=== PATIENT | female | born 1955 | race American Indian/Alaskan Native ===

== ENCOUNTER 2016-09-01 22:34 | Emergency (ER) | payer MEDICARE ==
[2016-09-01 23:18] LABS: Basophils % (Auto) 0.8 % (0.0-1.8); Eosinophils % (Auto) 3.4 % (0.0-4.3); Hematocrit 38.5 % (30.3-42.9); Hemoglobin 12.7 gm/dl (10.1-14.3); Mean Corpuscular HGB Conc 33 % (30-34); Mean Corpuscular Hemoglobin 30 pg (28-32); Mean Corpuscular Volume 92 fl (79-97); Platelet Count 392 K/mm3 (140-440); Red Blood Count 4.19 M/mm3 (3.65-5.03); Red Cell Distribution Width 13.8 % (13.2-15.2); White Blood Count 8.8 K/mm3 (4.5-11.0)
[2016-09-01 23:39] LABS: Anion Gap 19 mmol/L; Blood Urea Nitrogen 22 mg/dL (7-17); Calcium 9.4 mg/dL (8.4-10.2); Carbon Dioxide 27 mmol/L (22-30); Chloride 94.8 mmol/L (98-107); Glucose 104 mg/dL (65-100); Potassium 3.8 mmol/L (3.6-5.0); Sodium 137 mmol/L (137-145)
--- NOTE | 2016-09-02 07:45 | Emergency Department Report ---
HPI - General Chief Complaint: Chest Pain Time Seen by Provider: 09/02/16 07:13 - HPI HPI: This is a 60-year-old Afro-[place] female presents the emergency department with complaint of elevated and uncontrolled blood pressure. Patient says she has been compliant with her medications include atenolol, Zestril, HCTZ and Norvasc, but her blood pressure continued to rise yesterday afternoon. She began having some generalized chest tightness and was driven in by her he seen. She says that the symptoms have resolved as being in the emergency department. She denies any headache, vision change, back pain, shortness of breath, nausea, vomiting. She has a history of mild COPD and is not on oxygen, insulin-dependent diabetes, hypertension, but she denies any history of PA, CVA , PE/DVT. Her primary care doctor is Dr. nadege nunez. No recent travel or sick contacts at home. She did not take any medications or treatment for symptoms prior to presentation. ED Past Medical Hx - Past Medical History Hx Hypertension: Yes Hx Diabetes: Yes Hx Arthritis: Yes (NECK AND BACK) Hx COPD: Yes Additional medical history: high cholesterol, hypothyroid - Surgical History Additional Surgical History: knee replacement, , hysterectomy - Social History Smoking Status: Former Smoker Substance Use Type: None - Medications Home Medications: Home Medications Medication Instructions Recorded Confirmed Last Taken Type Diazepam Tab [Valium] 2 mg PO BID PRN #8 tablet 06/10/14 Unknown Rx Naproxen [Naprosyn TAB] 500 mg PO BID #30 tablet 10/11/15 Unknown Rx Sulfamethoxazole/Trimethoprim 1 each PO BID #20 tablet 10/11/15 Unknown Rx [Bactrim DS TAB] traMADol [Ultram] 50 mg PO Q6HR PRN #20 tablet 10/11/15 Unknown Rx ED Review of Systems ROS: Stated complaint: CHEST PAIN, ELEVATED BLOOD PRESSURE Other details as noted in HPI Comment: All other systems reviewed and negative Constitutional: denies: chills, fever Eyes: denies: eye pain, eye discharge, vision change ENT: denies: ear pain, throat pain Respiratory: denies: cough, shortness of breath, wheezing Cardiovascular: chest pain (tightness - now resolved). denies: palpitations Gastrointestinal: denies: abdominal pain, nausea, diarrhea Genitourinary: denies: urgency, dysuria, discharge Musculoskeletal: denies: back pain, joint swelling, arthralgia Skin: denies: rash, lesions Neurological: denies: headache, weakness, paresthesias Physical Exam - Physical Exam Vital Signs: Vital Signs 09/01/16 09/02/16 22:46 06:13 Temperature 97.9 F 98.9 F Pulse Rate 68 66 Respiratory 20 16 Rate Blood Pressure 192/96 165/81 O2 Sat by Pulse 98 99 Oximetry Physical Exam: GENERAL: The patient is well-developed well-nourished. HEENT: Normocephalic. Atraumatic. Extraocular motions are intact. Patient has moist mucous membranes. Pupils equal reactive to light bilaterally. NECK: Supple. Trachea is midline. CHEST/LUNGS: Clear to auscultation. There is no respiratory distress noted. HEART/CARDIOVASCULAR: Regular. There is no tachycardia. There is no gallop rub or murmur. ABDOMEN: Abdomen is soft, nontender. Patient has normal bowel sounds. There is no abdominal distention. Obese habitus. SKIN: There is no rash. There is no edema. There is no diaphoresis. NEURO: The patient is awake, alert, and oriented. The patient is cooperative. The patient has no focal neurologic deficits. The patient has normal speech. MUSCULOSKELETAL: There is no tenderness or deformity. There is no limitation range of motion. There is no evidence of acute injury. ED Course Vital Signs 09/01/16 09/02/16 22:46 06:13 Temperature 97.9 F 98.9 F Pulse Rate 68 66 Respiratory 20 16 Rate Blood Pressure 192/96 165/81 O2 Sat by Pulse 98 99 Oximetry ED Medical Decision Making - Lab Data Result diagrams: 09/01/16 23:05 09/01/16 23:05 - EKG Data -: EKG Interpreted by Me EKG shows normal: sinus rhythm, axis, intervals, QRS complexes, ST-T waves Rate: normal - EKG Data When compared to previous EKG there are: no significant change Interpretation: normal EKG, unchanged when compared t (03/30/11) - Radiology Data Radiology results: image reviewed interpreted by me: Chest x-ray did not show any acute process. Heart is normal shape and size. No effusions. No pneumothorax. No signs of pneumonia seen. - Medical Decision Making 60-year-old female presents to the emergency department with elevated and uncontrolled blood pressure as well as some chest tightness that occurred prior to presentation but resolved upon presentation. Patient has diagnosed history of hypertension and says she has been compliant with her medications. Blood pressure was a systolic of 200 earlier but has come down to a more reasonable level without any intervention. Patient had EKG that does not show any signs of ST elevation PA, ischemia or dysrhythmia. Her labs are unremarkable including negative troponins 3. She no longer has any chest pain. She does not have any shortness of breath. She is very low suspicion on the well's score criteria. The patient says she is currently back at baseline. She appears safe for discharge home at this time. She has good follow-up with Dr. Jefferson. She's been encouraged to return to the emergency department with any return of her chest pain, inability to control her blood pressure or any acute distress. - Differential Diagnosis PA, costochondritis, GERD, hypertensive urgency Critical Care Time: No Critical care attestation.: If time is entered above; I have spent that time in minutes in the direct care of this critically ill patient, excluding procedure time. ED Disposition Clinical Impression: Chest tightness Hypertension Qualifiers: Hypertension type: essential hypertension Qualified Code(s): I10 - Essential ( primary) hypertension Disposition: DISCHARGED TO HOME OR SELFCARE Is pt being admited?: No Does the pt Need Aspirin: No Condition: Good Instructions: Hypertension (ED), Chest Pain (ED) Additional Instructions: Please follow-up with your primary care doctor in the next few days. I have also given you a referral for a local date night caregiver in case she would like to follow-up regarding her recent chest tightness for an outpatient stress test and further evaluation. However he should return to the emergency department with any return of your chest pain, worsening of your symptoms or any acute distress. Please try and stay away from foods that are high in salt and caffeinated products to assist with your blood pressure. Referrals: FAY JEFFERSON MD [Primary Care Provider] - 3-5 Days Time of Disposition: 08:04
--- NOTE | 2016-09-02 07:58 | XRay Report ---
AP CHEST: HISTORY: chest pain AP view of the chest demonstrates a normal mediastinal and cardiac contour with clear lungs and normal bony and soft tissue structures. IMPRESSION: Unremarkable AP chest.
[2016-09-02 08:02] VITALS: BP 145/72
== END 2016-09-02 08:20 | disposition home or self-care (01) ==
LOC: ED 22:34
DX: R07.89 Other chest pain (principal); I10 Essential (primary) hypertension; E11.9 Type 2 diabetes mellitus without complications; M19.90 Unspecified osteoarthritis, unspecified site; J44.9 Chronic obstructive pulmonary disease, unspecified; E78.00 Pure hypercholesterolemia, unspecified; E03.9 Hypothyroidism, unspecified; Z90.710 Acquired absence of both cervix and uterus; Z87.891 Personal history of nicotine dependence
CPT/HCPCS: 36415; 71010; 80048; 84484; 85025; 93005; 93010; 99285

== ENCOUNTER 2017-09-28 07:31 | Outpatient (CLI) | payer MEDICARE ==
--- NOTE | 2017-09-29 08:14 | Mammography Report ---
BILATERAL MAMMOGRAM: FINDINGS: The breasts are almost entirely fat (<25% glandular). No mass, distortion, suspicious calcification, or skin change is seen. No significant change when compared to prior examination June 2016. CAD was utilized. IMPRESSION: Negative mammogram. There is no mammographic evidence of malignancy. RECOMMENDATION: Follow-up per ACS guidelines. BI-RADS CATEGORY: 1 = Negative ACR BI-RADS MAMMOGRAPHIC CODES: 0 = Needs additional imaging evaluation; 1 = Negative; 2 = Benign; 3 = Probably benign; 4 = Suspicious; 5 = Malignant; 6 = Known biopsy-proven malignancy COMMENT: 1. Dense breast tissue, i.e., adenosis, fibrocystic changes, etc., may obscure an underlying neoplasm. 2. Approximately 10% of cancers are not detected with mammography. 3. A negative mammography report should not delay biopsy if a clinically suspicious mass is present. COMMENT: Patient follow-up letters are generated in [employer].
== END 2017-09-28 07:32 | disposition home or self-care (01) ==
LOC: MAMMO 07:31
PROVIDERS: ATTEND Internal Medicine
DX: Z12.31 Encounter for screening mammogram for malignant neoplasm of breast (principal)
CPT/HCPCS: 77067

== ENCOUNTER 2017-12-29 12:18 | Emergency (ER) | payer MEDICARE ==
[2017-12-29 16:37] VITALS: BP 132/77
--- NOTE | 2017-12-29 16:50 | Emergency Department Report ---
ED Extremity Problem HPI - General Chief complaint: Extremity Injury, Lower Stated complaint: KNEES/FEET INJURY Time Seen by Provider: 12/29/17 16:28 Source: patient, family Mode of arrival: Ambulatory Limitations: No Limitations - History of Present Illness Initial comments: Patient complained of bilateral knee pain which has been ongoing since yesterday. Patient denies any fall or injury to the knee. Patient had previous bilateral knee replacement. He also complained of mild feet swelling. MD Complaint: extremity pain, extremity swelling, joint paint -: Sudden, days(s) (1) Location: lower extremity, bilateral lower extremity, knee -: Yes myalgia, Yes arthralgia Radiation: none Severity scale (0 -10): 3 Quality: aching, dull Consistency: intermittent Improves with: immobilization, elevation Worsens with: weight bearing, exertion Associated Symptoms: arthralgias - Related Data Previous Rx's Medication Instructions Recorded Last Taken Type Diazepam Tab [Valium] 2 mg PO BID PRN #8 tablet 06/10/14 Unknown Rx Naproxen [Naprosyn TAB] 500 mg PO BID #30 tablet 10/11/15 Unknown Rx Sulfamethoxazole/Trimethoprim 1 each PO BID #20 tablet 10/11/15 Unknown Rx [Bactrim DS TAB] traMADol [Ultram] 50 mg PO Q6HR PRN #20 tablet 10/11/15 Unknown Rx Ketorolac [Toradol] 10 mg PO Q6H PRN #12 tablet 12/29/17 Unknown Rx Allergies Allergy/AdvReac Type Severity Reaction Status Date / Time No Known Allergies Allergy Verified 01/08/16 18:11 ED Review of Systems ROS: Stated complaint: KNEES/FEET INJURY Other details as noted in HPI Comment: All other systems reviewed and negative Constitutional: denies: chills, fever Eyes: denies: vision change ENT: denies: ear pain, hearing loss Respiratory: denies: orthopnea, shortness of breath, SOB with exertion Cardiovascular: denies: chest pain, palpitations Endocrine: no symptoms reported Gastrointestinal: denies: abdominal pain, nausea, vomiting, diarrhea Genitourinary: denies: urgency, dysuria, frequency Musculoskeletal: denies: back pain, joint swelling Skin: denies: rash, change in color Neurological: denies: headache, weakness, numbness Psychiatric: denies: anxiety, depression Hematological/Lymphatic: denies: easy bleeding, easy bruising ED Past Medical Hx - Past Medical History Previous Medical History?: Yes Hx Hypertension: Yes Hx Diabetes: Yes Hx Arthritis: Yes (NECK AND BACK) Hx COPD: Yes Additional medical history: high cholesterol, hypothyroid - Surgical History Past Surgical History?: Yes Additional Surgical History: knee replacement, , hysterectomy - Social History Smoking Status: Former Smoker Substance Use Type: None - Medications Home Medications: Home Medications Medication Instructions Recorded Confirmed Last Taken Type Diazepam Tab [Valium] 2 mg PO BID PRN #8 tablet 06/10/14 Unknown Rx Naproxen [Naprosyn TAB] 500 mg PO BID #30 tablet 10/11/15 Unknown Rx Sulfamethoxazole/Trimethoprim 1 each PO BID #20 tablet 10/11/15 Unknown Rx [Bactrim DS TAB] traMADol [Ultram] 50 mg PO Q6HR PRN #20 tablet 10/11/15 Unknown Rx Ketorolac [Toradol] 10 mg PO Q6H PRN #12 tablet 12/29/17 Unknown Rx ED Physical Exam - General Limitations: No Limitations General appearance: alert, in no apparent distress - Head Head exam: Present: atraumatic, normocephalic, normal inspection - Eye Eye exam: Present: normal appearance, PERRL, EOMI Pupils: Present: normal accommodation - ENT ENT exam: Present: normal exam, normal orophraynx, mucous membranes moist - Neck Neck exam: Present: normal inspection, full ROM. Absent: tenderness - Respiratory Respiratory exam: Present: normal lung sounds bilaterally. Absent: respiratory distress, wheezes, rales, rhonchi - Cardiovascular Cardiovascular Exam: Present: regular rate, normal rhythm, normal heart sounds - GI/Abdominal GI/Abdominal exam: Present: soft. Absent: distended, tenderness, guarding, normal bowel sounds - Extremities Exam Extremities exam: Present: normal inspection, full ROM, normal capillary refill. Absent: tenderness, pedal edema, joint swelling, calf tenderness - Back Exam Back exam: Present: normal inspection, full ROM - Neurological Exam Neurological exam: Present: alert, oriented X3, CN II-XII intact - Psychiatric Psychiatric exam: Present: normal affect, normal mood - Skin Skin exam: Present: warm, dry, intact, normal color ED Course Vital Signs 12/29/17 12/29/17 13:01 16:37 Temperature 97.9 F Pulse Rate 78 72 Respiratory 16 20 Rate Blood Pressure 164/71 Blood Pressure 132/77 [Left] O2 Sat by Pulse 99 100 Oximetry ED Medical Decision Making - Lab Data Result diagrams: 12/29/17 17:21 12/29/17 17:21 - EKG Data -: EKG Interpreted by Me EKG shows normal: sinus rhythm Rate: normal (71) - EKG Data When compared to previous EKG there are: changes noted, other (First degree AV block) Interpretation: other (No STEMI) - Radiology Data Radiology results: report reviewed, image reviewed - Medical Decision Making Bilateral knee pain. Arthritis. Critical care attestation.: If time is entered above; I have spent that time in minutes in the direct care of this critically ill patient, excluding procedure time. ED Disposition Clinical Impression: Mild dehydration Arthralgia Qualifiers: Joint pain location: knee Laterality: bilateral Qualified Code(s): M25.561 - Pain in right knee; M25.562 - Pain in left knee Disposition: - TO HOME OR SELFCARE Is pt being admited?: No Does the pt Need Aspirin: No Condition: Stable Instructions: Arthralgia (ED), Knee Pain (ED), Dehydration (ED) Additional Instructions: Please follow up with your primary doctor tomorrow morning. Return to the ED if your condition worsens. Prescriptions: Ketorolac [Toradol] 10 mg PO Q6H PRN #12 tablet PRN Reason: Pain Referrals: FAY JEFFERSON MD [Primary Care Provider] - 3-5 Days Time of Disposition: 18:10
[2017-12-29 17:39] LABS: Basophils # (Auto) 0.1 K/mm3 (0.0-0.1); Basophils % (Auto) 0.8 % (0.0-1.8); Eosinophils # (Auto) 0.2 K/mm3 (0.0-0.4); Eosinophils % (Auto) 1.3 % (0.0-4.3); Hematocrit 38.6 % (30.3-42.9); Lymphocytes # (Auto) 3.9 K/mm3 (1.2-5.4); Lymphocytes % (Auto) 27.7 % (13.4-35.0); Mean Corpuscular HGB Conc 34 % (30-34); Mean Corpuscular Hemoglobin 31 pg (28-32); Mean Corpuscular Volume 92 fl (79-97); Monocytes # (Auto) 1.5 K/mm3 (0.0-0.8); Monocytes % (Auto) 10.4 % (0.0-7.3); Platelet Count 349 K/mm3 (140-440); Red Blood Count 4.18 M/mm3 (3.65-5.03); Red Cell Distribution Width 13.7 % (13.2-15.2)
--- NOTE | 2017-12-29 17:42 | XRay Report ---
FINAL REPORT EXAM: XR KNEE BILAT 3V HISTORY: Knee pain doubt and swelling with no known injury. Prior knee surgery 2002 in 2006 TECHNIQUE: AP, oblique, and lateral views of the each knee bilaterally PRIORS: None. FINDINGS: Bilateral total knee prosthesis are in place in satisfactory position and alignment. No radiographic evidence for loosening is seen. No acute fracture or dislocation is seen. The soft tissues are unremarkable with no evidence for suprapatellar joint effusion. Joint spaces are maintained and bony mineralization is normal. IMPRESSION: Negative views of the bilateral knees. Bilateral knee prostheses in place.
--- NOTE | 2017-12-29 17:44 | XRay Report ---
FINAL REPORT EXAM: XR CHEST 1V AP HISTORY: cough TECHNIQUE: AP portable view of the chest PRIORS: None. FINDINGS: Lines, tubes, and devices: N/A Lungs and pleura: Trachea is normal in position. Lungs are clear of infiltrate, pleural effusion, vascular congestion, or pneumothorax. Cardiomediastinal silhouette: Cardiac and mediastinal silhouettes are unremarkable. Prominence of the main pulmonary artery segment is noted, however, this may be accentuated by the patient's slight rotation to the right. Other: Bony structures are intact. IMPRESSION: No acute cardiopulmonary process seen. Prominence of the main pulmonary artery segment is noted, however, this may be accentuated by positioning. When the patient is more stable, dedicated PA and lateral views of the chest are recommended.
[2017-12-29 17:48] LABS: INR 0.88 (0.87-1.13)
[2017-12-29 17:49] LABS: Partial Thromboplastin Time 34.3 Sec. (24.2-36.6)
[2017-12-29 17:51] LABS: Alanine Aminotransferase 15 units/L (7-56); Albumin 4.3 g/dL (3.9-5); BUN/Creatinine Ratio 32; Blood Urea Nitrogen 19 mg/dL (7-17); Calcium 9.8 mg/dL (8.4-10.2); Hemolysis Index 1
[2017-12-29] MEDS ORDERED: TORADOL IV ONE (18:02)
[2017-12-29] MEDS ORDERED: NACL 0.9% 1000 ML 1,000 ML IV ONE (18:02)
== END 2017-12-29 19:20 | disposition home or self-care (01) ==
LOC: ED 12:18
DX: E86.0 Dehydration (principal); M25.561 Pain in right knee; M25.562 Pain in left knee; I10 Essential (primary) hypertension; E11.9 Type 2 diabetes mellitus without complications; M19.90 Unspecified osteoarthritis, unspecified site; E78.00 Pure hypercholesterolemia, unspecified; Z90.710 Acquired absence of both cervix and uterus; Z87.891 Personal history of nicotine dependence
CPT/HCPCS: 36415; 71045; 73562; 80053; 83880; 84484; 85025; 85610; 85730; 93005; 93010; 96374; 99284; J1885; J7030

== ENCOUNTER 2018-10-04 10:34 | Outpatient (CLI) | payer MEDICARE ==
--- NOTE | 2018-10-05 08:52 | Mammography Report ---
BILATERAL MAMMOGRAM: FINDINGS: There are scattered fibroglandular densities (approximately 25%-50% glandular). No mass, distortion, suspicious calcification, or skin change is seen. There are no significant changes when compared to prior exams dating back to June 2016. CAD was utilized. IMPRESSION: Negative mammogram. There is no mammographic evidence of malignancy. RECOMMENDATION: Follow-up per ACS guidelines. BI-RADS CATEGORY: 1 = Negative ACR BI-RADS MAMMOGRAPHIC CODES: 0 = Needs additional imaging evaluation; 1 = Negative; 2 = Benign; 3 = Probably benign; 4 = Suspicious; 5 = Malignant; 6 = Known biopsy-proven malignancy COMMENT: 1. Dense breast tissue, i.e., adenosis, fibrocystic changes, etc., may obscure an underlying neoplasm. 2. Approximately 10% of cancers are not detected with mammography. 3. A negative mammography report should not delay biopsy if a clinically suspicious mass is present. COMMENT: Patient follow-up letters are generated in [employer].
== END 2018-10-04 10:35 | disposition home or self-care (01) ==
LOC: MAMMO 10:34
PROVIDERS: ATTEND Internal Medicine
DX: Z12.31 Encounter for screening mammogram for malignant neoplasm of breast (principal); I10 Essential (primary) hypertension; J44.9 Chronic obstructive pulmonary disease, unspecified; M19.90 Unspecified osteoarthritis, unspecified site; Z90.710 Acquired absence of both cervix and uterus
CPT/HCPCS: 77067

== ENCOUNTER 2018-11-14 21:17 | Inpatient (IN) | payer MEDICARE ==
[2018-11-14 21:42] LABS: Basophils # (Auto) 0.1 K/mm3 (0.0-0.1); Basophils % (Auto) 0.6 % (0.0-1.8); Eosinophils # (Auto) 0.2 K/mm3 (0.0-0.4); Eosinophils % (Auto) 1.7 % (0.0-4.3); Lymphocytes # (Auto) 3.2 K/mm3 (1.2-5.4); Lymphocytes % (Auto) 23.4 % (13.4-35.0); Mean Corpuscular HGB Conc 33 % (30-34); Mean Corpuscular Volume 93 fl (79-97); Monocytes # (Auto) 0.9 K/mm3 (0.0-0.8); Monocytes % (Auto) 6.6 % (0.0-7.3); Platelet Count 264 K/mm3 (140-440); Red Cell Distribution Width 13.5 % (13.2-15.2)
--- NOTE | 2018-11-14 21:47 | Emergency Department Report ---
ED General Adult HPI - General Chief complaint: Neuro Symptoms/Deficit Stated complaint: POSS CVA Time Seen by Provider: 11/14/18 21:40 Source: patient Mode of arrival: Ambulatory Limitations: No Limitations - History of Present Illness Initial comments: 62-year-old female with a history of HTN, DM, and hypercholesterolemia presents with the complaint of left-sided numbness and tingling in her left upper and lower extremity which began at 7 PM. Patient states she was at alev[employer] and started to feel hot. Patient states she also felt nauseous but denies any vomiting. Patient states that she had generalized weakness. EMS was called and patient had stable vitals. Patient's then brought patient to the emergency department for evaluation. Patient has no prior history of CVA and ambulates without difficulty on a daily basis. - Related Data Previous Rx's Medication Instructions Recorded Last Taken Type diazePAM TAB [Valium] 2 mg PO BID PRN #8 tablet 06/10/14 Unknown Rx Naproxen [Naprosyn TAB] 500 mg PO BID #30 tablet 10/11/15 Unknown Rx Sulfamethoxazole/Trimethoprim 1 each PO BID #20 tablet 10/11/15 Unknown Rx [Bactrim DS TAB] traMADol [Ultram] 50 mg PO Q6HR PRN #20 tablet 10/11/15 Unknown Rx Ketorolac [Toradol] 10 mg PO Q6H PRN #12 tablet 12/29/17 Unknown Rx Allergies Allergy/AdvReac Type Severity Reaction Status Date / Time No Known Allergies Allergy Verified 01/08/16 18:11 ED Review of Systems ROS: Stated complaint: POSS CVA Other details as noted in HPI Constitutional: denies: chills, fever Eyes: denies: eye pain, eye discharge, vision change ENT: denies: ear pain, throat pain Respiratory: denies: cough, shortness of breath, wheezing Cardiovascular: denies: chest pain, palpitations Endocrine: no symptoms reported Gastrointestinal: denies: abdominal pain, nausea, diarrhea Genitourinary: denies: urgency, dysuria, discharge Musculoskeletal: denies: back pain, joint swelling, arthralgia Skin: denies: rash, lesions Neurological: weakness, other (paresthesias). denies: headache, paresthesias Psychiatric: denies: anxiety, depression Hematological/Lymphatic: denies: easy bleeding, easy bruising ED Past Medical Hx - Past Medical History Hx Hypertension: Yes Hx Diabetes: Yes Hx Arthritis: Yes (NECK AND BACK) Hx COPD: Yes Additional medical history: high cholesterol, hypothyroid - Surgical History Additional Surgical History: knee replacement, , hysterectomy - Social History Smoking Status: Former Smoker Substance Use Type: None - Medications Home Medications: Home Medications Medication Instructions Recorded Confirmed Last Taken Type diazePAM TAB [Valium] 2 mg PO BID PRN #8 tablet 06/10/14 Unknown Rx Naproxen [Naprosyn TAB] 500 mg PO BID #30 tablet 10/11/15 Unknown Rx Sulfamethoxazole/Trimethoprim 1 each PO BID #20 tablet 10/11/15 Unknown Rx [Bactrim DS TAB] traMADol [Ultram] 50 mg PO Q6HR PRN #20 tablet 10/11/15 Unknown Rx Ketorolac [Toradol] 10 mg PO Q6H PRN #12 tablet 12/29/17 Unknown Rx ED Physical Exam - General Limitations: No Limitations General appearance: alert, in no apparent distress, other (uncomfortable) - Head Head exam: Present: atraumatic, normocephalic - Eye Eye exam: Present: normal appearance - ENT ENT exam: Present: mucous membranes dry - Neck Neck exam: Present: normal inspection - Respiratory Respiratory exam: Present: normal lung sounds bilaterally. Absent: respiratory distress - Cardiovascular Cardiovascular Exam: Present: regular rate, normal rhythm. Absent: systolic murmur, diastolic murmur, rubs, gallop - GI/Abdominal GI/Abdominal exam: Present: soft, normal bowel sounds - Extremities Exam Extremities exam: Present: normal inspection - Back Exam Back exam: Present: normal inspection - Neurological Exam Neurological exam: Present: alert, oriented X3, CN II-XII intact. Absent: motor sensory deficit - Expanded Neurological Exam Expanded Neurological exam: Absent: expressive aphasia Patient oriented to: Present: person, place, time Cranial nerves: EOM's Intact: Normal, Gag Reflex: Normal, Tongue Deviation: Normal Cerebellar function: Finger to Nose: Normal Upper motor neuron: Yevgeniy Neglect: Normal, Pronator Drift: Normal Sensory exam: Upper Extremity Light Touch: Normal, Lower Extremity Light Touch: Normal Motor strength exam: RUE: 5, LUE: 5, RLE: 5, LLE: 5 Best Eye Response (Maurice): (4) open spontaneously Maurice Total: 4 - Psychiatric Psychiatric exam: Present: normal affect, normal mood - Skin Skin exam: Present: warm, dry, intact, normal color. Absent: rash ED Course Vital Signs 11/14/18 11/14/18 11/14/18 21:24 21:40 22:46 Temperature 97.5 F L 97.4 F L Pulse Rate 69 71 74 Respiratory 18 15 15 Rate Blood Pressure 190/87 190/82 Blood Pressure 190/82 183/85 [Left] O2 Sat by Pulse 100 99 98 Oximetry ED Medical Decision Making - Lab Data Result diagrams: 11/14/18 21:35 11/14/18 21:35 - EKG Data -: EKG Interpreted by Me EKG shows normal: sinus rhythm - EKG Data When compared to previous EKG there are: no significant change - Medical Decision Making Patient seen by teleneurologist and patient is not a TPA candidate. Patient to be admitted to the hospitalist service for continued management and treatment. Teleneurologist states that as patient's symptomatology is not consistent with a large vessel occlusion that patient does not need a CTA of head and neck and can receive inpatient workup for CVA during admisison including carotid ultrasound and echocardiogram. - Differential Diagnosis CVA; TIA; Anemia; Electrolyte Abnormality; Critical Care Time: Yes Critical care time in (mins) excluding proc time.: 40 Critical care attestation.: If time is entered above; I have spent that time in minutes in the direct care o f this critically ill patient, excluding procedure time. Critical care time includes time spent on direct bedside care, physician consultation, frequent reassessment. ED Disposition Clinical Impression: CVA (cerebral vascular accident) Disposition: 09 OP ADMIT IP TO THIS HOSP Is pt being admited?: Yes Does the pt Need Aspirin: Yes Condition: Stable Referrals: MELISSA CRAIG MD [Primary Care Provider] - 3-5 Days Time of Disposition: 22:47 Print Language: ITALIAN
--- NOTE | 2018-11-14 21:54 | Cat Scan Report ---
PROCEDURE: CT HEAD/BRAIN WO CON TECHNIQUE: Computerized tomography of the head was performed without contrast material. CT DOSE LENGTH PRODUCT: 920.5 mGycm HISTORY: neuro deficits <6hrs or sx present upon awakening COMPARISONS: None . FINDINGS: There is moderate degree of bilateral periventricular nonspecific white matter hypodensity most likel y representing chronic microangiopathy. An acute intra-axial or extra-axial hemorrhage or mass effect is not identified. Cavum septum vergae and cavum septum pellucidum are identified consistent with no rmal variants. Posterior fossa structures are unremarkable. Bilateral paranasal sinuses and mastoid a ir cells are clear. Bones are intact. IMPRESSION: No acute intracranial abnormality. This document is electronically signed by Laron Diggs MD., November 14 2018 09:52:01 PM ET
[2018-11-14 21:55] LABS: BUN/Creatinine Ratio 21; Blood Urea Nitrogen 17 mg/dL (7-17); Calcium 9.2 mg/dL (8.4-10.2); Hemolysis Index 6
[2018-11-14 22:01] LABS: INR 0.86 (0.87-1.13)
[2018-11-14 22:02] LABS: Partial Thromboplastin Time 32.9 Sec. (24.2-36.6)
[2018-11-14] MEDS ORDERED: ECOTRIN PO ONE (22:06)
--- NOTE | 2018-11-14 22:25 | Emergency Department Report ---
ED Neuro Deficit HPI - General Chief Complaint: Neuro Symptoms/Deficit Stated Complaint: POSS CVA Time Seen by Provider: 11/14/18 21:40 Source: patient Mode of arrival: Ambulatory Limitations: No Limitations - History of Present Illness Initial Comments: * was driving this evening * at about 1900 sudden onset of dizziness, vague but no vertigo * drove to ER for further evaluation and noted L side numbness just prior to arrival * no similar symptoms in the past * no weakness reported * able to ambulate * arrived at 2116 * call to teleneuro at 2133 * connected at 2135 * eval at 2136 * NIHSS 0, no objective findings of neurological deficits * no tPA or intervention due to NIHSS 0 Last Observed Normal: 19:00 - Related Data Home Medications: Home Medications Medication Instructions Recorded Confirmed Last Taken Atenolol [Tenormin] 50 mg PO DAILY 11/14/18 11/14/18 Unknown Levothyroxine Sodium 125 mcg PO DAILY 11/14/18 11/14/18 Unknown Omeprazole 40 mg PO DAILY 11/14/18 11/14/18 Unknown Pravastatin Sodium [Pravastatin] 20 mg PO QHS 11/14/18 11/14/18 Unknown Quinapril/Hydrochlorothiazide 1 each PO BID 11/14/18 11/14/18 Unknown [Quinapril-Hctz 20-12.5 mg Tab] amLODIPine 5 mg PO DAILY 11/14/18 11/14/18 Unknown metFORMIN [Glucophage] 500 mg PO QDAY 11/14/18 11/14/18 Unknown Allergies/Adverse Reactions: Allergies Allergy/AdvReac Type Severity Reaction Status Date / Time No Known Allergies Allergy Verified 01/08/16 18:11 ED Review of Systems ROS: Stated complaint: POSS CVA Other details as noted in HPI Constitutional: denies: chills, fever Eyes: denies: eye pain, eye discharge, vision change ENT: denies: ear pain, throat pain Respiratory: denies: cough, shortness of breath, wheezing Cardiovascular: denies: chest pain, palpitations Endocrine: no symptoms reported Gastrointestinal: denies: abdominal pain, nausea, diarrhea Genitourinary: denies: urgency, dysuria, discharge Musculoskeletal: denies: back pain, joint swelling, arthralgia Skin: denies: rash, lesions Neurological: weakness, other (paresthesias). denies: headache, paresthesias Psychiatric: denies: anxiety, depression Hematological/Lymphatic: denies: easy bleeding, easy bruising ED Past Medical Hx - Past Medical History Previous Medical History?: Yes Hx Hypertension: Yes Hx Diabetes: Yes Hx Arthritis: Yes (NECK AND BACK) Hx COPD: Yes Additional medical history: high cholesterol, hypothyroid - Surgical History Past Surgical History?: Yes Additional Surgical History: knee replacement, , hysterectomy - Social History Smoking Status: Former Smoker Substance Use Type: None - Medications Home Medications: Home Medications Medication Instructions Recorded Confirmed Last Taken Type Atenolol [Tenormin] 50 mg PO DAILY 11/14/18 11/14/18 Unknown History Levothyroxine Sodium 125 mcg PO DAILY 11/14/18 11/14/18 Unknown History Omeprazole 40 mg PO DAILY 11/14/18 11/14/18 Unknown History Pravastatin Sodium [Pravastatin] 20 mg PO QHS 11/14/18 11/14/18 Unknown History Quinapril/Hydrochlorothiazide 1 each PO BID 11/14/18 11/14/18 Unknown History [Quinapril-Hctz 20-12.5 mg Tab] amLODIPine 5 mg PO DAILY 11/14/18 11/14/18 Unknown History metFORMIN [Glucophage] 500 mg PO QDAY 11/14/18 11/14/18 Unknown History ED Neuro Physical Exam - General Limitations: No Limitations General appearance: alert, in no apparent distress, other (uncomfortable) Suspected Stroke: Yes - NIHSS Assessment Interval: Baseline 1a. Level of Consciousness: alert/keenly responsive 1b. LOC Questions: answers both correctly 1c. LOC Commands: performs tasks correctly 2. Best Gaze: normal 3. Visual: no visual loss 4. Facial Palsy: normal symmetrical movement 5b. Motor Arm Right: no drift 5a. Motor Arm Left: no drift 6a. Motor Leg Left: no drift 6b. Motor Leg Right: no drift 7. Limb Ataxia: absent 8. Sensory: normal 9. Best Language: no aphasia 10. Dysarthria: normal 11. Extinction/Inattention: no abnormality Total Score: 0 Stroke Severity: No Stroke Symptoms ED Course Vital Signs 11/14/18 11/14/18 11/14/18 21:24 21:40 22:46 Temperature 97.5 F L 97.4 F L Pulse Rate 69 71 74 Respiratory 18 15 15 Rate Blood Pressure 190/87 190/82 Blood Pressure 190/82 183/85 [Left] O2 Sat by Pulse 100 99 98 Oximetry 11/14/18 23:20 Temperature 97.4 F L Pulse Rate 76 Respiratory 14 Rate Blood Pressure Blood Pressure 149/70 [Left] O2 Sat by Pulse 99 Oximetry - Consultations Consultation #1: 11/14/18 22:24 TeleNeurology Consultation Assessment and Plan Dizziness L side numbness * mild and non-specific symptoms * NIHSS 0 * there is a focality to symptoms but no objective findings on exam * given the unilateral symptoms further cerebrovascular work-up is indicated * ASA OK in ED * MRI brain, other testing at discretion of neuro consult team or admitting team * dysphagia screen * DVT prophylaxis * discussed with ED physician - Lab Data Result diagrams: 11/14/18 21:35 11/14/18 21:35 Lab Results 11/14/18 11/14/18 11/14/18 Range/Units 21:26 21:35 21:35 WBC 13.6 H (4.5-11.0) K/mm3 RBC 4.20 (3.65-5.03) M/mm3 Hgb 13.0 (10.1-14.3) gm/dl Hct 39.0 (30.3-42.9) % MCV 93 (79-97) fl MCH 31 (28-32) pg MCHC 33 (30-34) % RDW 13.5 (13.2-15.2) % Plt Count 264 (140-440) K/mm3 Lymph % (Auto) 23.4 (13.4-35.0) % Gulf % (Auto) 6.6 (0.0-7.3) % Eos % (Auto) 1.7 (0.0-4.3) % Baso % (Auto) 0.6 (0.0-1.8) % Lymph # 3.2 (1.2-5.4) K/mm3 Gulf # 0.9 H (0.0-0.8) K/mm3 Eos # 0.2 (0.0-0.4) K/mm3 Baso # 0.1 (0.0-0.1) K/mm3 Seg Neutrophils % 67.7 (40.0-70.0) % Seg Neutrophils # 9.2 H (1.8-7.7) K/mm3 PT 12.2 (12.2-14.9) Sec. INR 0.86 L (0.87-1.13) APTT 32.9 (24.2-36.6) Sec. Sodium (137-145) mmol/L Potassium (3.6-5.0) mmol/L Chloride (98-107) mmol/L Carbon Dioxide (22-30) mmol/L Anion Gap mmol/L BUN (7-17) mg/dL Creatinine (0.7-1.2) mg/dL Estimated GFR ml/min BUN/Creatinine Ratio % Glucose (65-100) mg/dL POC Glucose 98 (70-105) Calcium (8.4-10.2) mg/dL Troponin T (0.00-0.029) ng/mL 11/14/18 Range/Units 21:35 WBC (4.5-11.0) K/mm3 RBC (3.65-5.03) M/mm3 Hgb (10.1-14.3) gm/dl Hct (30.3-42.9) % MCV (79-97) fl MCH (28-32) pg MCHC (30-34) % RDW (13.2-15.2) % Plt Count (140-440) K/mm3 Lymph % (Auto) (13.4-35.0) % Gulf % (Auto) (0.0-7.3) % Eos % (Auto) (0.0-4.3) % Baso % (Auto) (0.0-1.8) % Lymph # (1.2-5.4) K/mm3 Gulf # (0.0-0.8) K/mm3 Eos # (0.0-0.4) K/mm3 Baso # (0.0-0.1) K/mm3 Seg Neutrophils % (40.0-70.0) % Seg Neutrophils # (1.8-7.7) K/mm3 PT (12.2-14.9) Sec. INR (0.87-1.13) APTT (24.2-36.6) Sec. Sodium 129 L (137-145) mmol/L Potassium 3.8 (3.6-5.0) mmol/L Chloride 90.1 L (98-107) mmol/L Carbon Dioxide 25 (22-30) mmol/L Anion Gap 18 mmol/L BUN 17 (7-17) mg/dL Creatinine 0.8 (0.7-1.2) mg/dL Estimated GFR > 60 ml/min BUN/Creatinine Ratio 21 % Glucose 117 H (65-100) mg/dL POC Glucose (70-105) Calcium 9.2 (8.4-10.2) mg/dL Troponin T < 0.010 (0.00-0.029) ng/mL Critical care attestation.: If time is entered above; I have spent that time in minutes in the direct care of this critically ill patient, excluding procedure time. ED Disposition Clinical Impression: CVA (cerebral vascular accident) Disposition: DC09 OP ADMIT IP TO THIS HOSP Is pt being admited?: Yes Does the pt Need Aspirin: No (defer to ED physician to order) Condition: Stable
[2018-11-14] MEDS ORDERED: TYLENOL PO PRN (23:12)
[2018-11-14] MEDS ORDERED: DULCOLAX PR PRN (23:12)
[2018-11-14] MEDS ORDERED: MILK OF MAGNESIA PO PRN (23:12)
[2018-11-14] MEDS ORDERED: SODIUM CHLORIDE FLUSH SYRINGE 10 ML IV PRN (23:12)
[2018-11-14] MEDS ORDERED: ZOFRAN IV PRN (23:12)
--- NOTE | 2018-11-14 23:14 | History and Physical Report ---
History of Present Illness Date of examination: 11/14/18 History of present illness: 62-year-old woman with a history of hypertension, diabetes, hyperlipidemia, COPD, hypothyroidism, comes to the emergency room because while she was at [employer] she felt hot, her got her. On the way home she developed left arm numbness and left-sided weakness Review of systems Constitutional: no weight loss, chills, fever Ears, eyes, nose, mouth and throat: no nasal congestion, no nasal discharge, no sinus pressure, no vision change, no red eye. Neck: No neck pain or rigidity. Cardiovascular: no palpitations, chest pain Respiratory: no cough, shortness of breath Gastrointestinal: no hematochezia, abdominal pain Genitourinary : no frequency , no hematuria Musculoskeletal: no joint swelling or muscle ache Integumentary: no rash, no pruritis Neurological: + parathesias, +focal weakness Endocrine: no cold or heat intolerance, no polyuria or polydipsia Hematologic/Lymphatic: no easy bruising, no easy bleeding, no gland swelling Allergic/Immunologic: no urticaria, no angioedema. PAST MEDICAL HISTORY:hypertension, diabetes, hyperlipidemia, COPD, hypothyroidism PAST SURGICAL HISTORY: , hysterectomy, knee surgery SOCIAL HISTORY: + alcohol,no drugs, tobacco FAMILY HISTORY: Hypertension Medications and Allergies Allergies Allergy/AdvReac Type Severity Reaction Status Date / Time No Known Allergies Allergy Verified 01/08/16 18:11 Home Medications Medication Instructions Recorded Confirmed Last Taken Type Atenolol [Tenormin] 50 mg PO DAILY 11/14/18 11/14/18 Unknown History Levothyroxine Sodium 125 mcg PO DAILY 11/14/18 11/14/18 Unknown History Omeprazole 40 mg PO DAILY 11/14/18 11/14/18 Unknown History Pravastatin Sodium [Pravastatin] 20 mg PO QHS 11/14/18 11/14/18 Unknown History Quinapril/Hydrochlorothiazide 1 each PO BID 11/14/18 11/14/18 Unknown History [Quinapril-Hctz 20-12.5 mg Tab] amLODIPine 5 mg PO DAILY 11/14/18 11/14/18 Unknown History metFORMIN [Glucophage] 500 mg PO QDAY 11/14/18 11/14/18 Unknown History Exam - Physical Exam Narrative exam: General Apperance: The patient lying in bed, breathing comfortable HEENT: Normocephalic, atraumatic. Pupils equally round and reactive to light, EOMI, no sclericterus or JVD or thyromegaly or nodule. , no carotid bruit, mucous membranes moist, no exudate or erythema Heart: S1-S2, regular is rhythm Lungs: Clear to auscultation bilaterally, breathing comfortable Abdomen: Positive bowel sounds, soft, nontender, nondistended, no organomegaly Extremities: No edema cyanosis clubbing Skin: no rash, nodule, warm and dry Neuro: cranial nerves 2-12 intact, speech is fluent, motor/sensory intact - Constitutional Vitals: Temp Pulse Resp BP Pulse Ox 97.4 F L 74 15 183/85 98 11/14/18 21:40 11/14/18 22:46 11/14/18 22:46 11/14/18 22:46 11/14/18 22:46 Results - Labs CBC & Chem 7: 11/14/18 21:35 11/14/18 21:35 Labs: Abnormal lab results 11/14/18 11/14/18 11/14/18 Range/Units 21:35 21:35 21:35 WBC 13.6 H (4.5-11.0) K/mm3 Bacon # 0.9 H (0.0-0.8) K/mm3 Seg Neutrophils # 9.2 H (1.8-7.7) K/mm3 INR 0.86 L (0.87-1.13) Sodium 129 L (137-145) mmol/L Chloride 90.1 L (98-107) mmol/L Glucose 117 H (65-100) mg/dL - Imaging and Cardiology Chest x-ray: report reviewed CT Scan - head: report reviewed Assessment and Plan Assessment Acute CVA Hypertension Diabetes Hyperlipidemia COPD Hypothyroidism Plan Admit to medicine Obtain MRI of the head and neck, echo Do neuro checks, swallow screen Consult physical occupational therapy Start aspirin, statin, IV hydralazine for blood pressure control Fingersticks initiate insulin sliding scale Continue outpatient medications DVT prophylaxis
--- NOTE | 2018-11-14 23:29 | XRay Report ---
PROCEDURE: XR CHEST 1V AP TECHNIQUE: Chest radiograph single view. HISTORY: chest pain COMPARISONS: None . FINDINGS: Heart: Normal. Mediastinum/Vessels: Normal. Lungs/Pleural space: Normal. Bony thorax: No acute osseous abnormality. Life support devices: None. IMPRESSION: No acute cardiopulmonary abnormality. This document is electronically signed by Suzy Layne DO., November 14 2018 11:27:05 PM ET
[2018-11-15] MEDS ORDERED: APRESOLINE IV PRN (03:54)
[2018-11-15] MEDS ORDERED: D50W (25GM) Syringe IV PRN (03:55)
[2018-11-15] MEDS: SYNTHROID PO SCH (05:15)
[2018-11-15 07:00] LABS: Chol/HDL Ratio 2.15 %
[2018-11-15] MEDS: HumaLOG SUB-Q SCH ×4 (07:30→22:35)
[2018-11-15] MEDS: GLUCOPHAGE PO SCH (09:13)
[2018-11-15] MEDS: ASPIRIN PO SCH (09:13)
[2018-11-15] MEDS: PROTONIX PO SCH (09:13)
[2018-11-15] MEDS: LOVENOX SUB-Q SCH (09:13)
[2018-11-15 11:11] LABS: Hematocrit 40.9 % (30.3-42.9); Hemoglobin 13.8 gm/dl (10.1-14.3); Mean Corpuscular HGB Conc 34 % (30-34); Mean Corpuscular Volume 93 fl (79-97); Platelet Count 297 K/mm3 (140-440); Red Cell Distribution Width 13.8 % (13.2-15.2)
[2018-11-15 11:34] LABS: BUN/Creatinine Ratio 24; Blood Urea Nitrogen 12 mg/dL (7-17); Calcium 9.3 mg/dL (8.4-10.2); Hemolysis Index 72
--- NOTE | 2018-11-15 14:05 | Progress Note ---
Assessment and Plan Assessment and plan: left arm numbness to r/o stroke Hypertension Diabetes mellitus Hyperlipidemia COPD Hypothyroidism Plan Admitted to medicine For MRI of the head and neck, echo Do neuro checks, swallow screen Consulted PT.OT,Speech Aspirin, statin, IV hydralazine for blood pressure control Fingersticks initiate insulin sliding scale Continue outpatient medications Continue Levothyroxine DVT prophylaxis with Lovenox History Interval history: left arm numbness left arm weakness Hospitalist Physical - Physical exam Narrative exam: Gen: Not in acute distress, lying in bed, morbidly obese HEENT: Normocephalic, atraumatic Neck: supple, no JVD Heart: S1 and S2 reg, no murmurs, rubs or gallop Lungs: Clear, no crackles Abd: soft, non tender, non distended, normal BS Ext: No edema, no clubbing, no cyanosis, Neuro: Awake,alert, left upper arm weakness Psych:Normal mood - Constitutional Vitals: Temp Pulse Resp BP Pulse Ox 97.5 F L 83 20 151/80 98 11/15/18 11:44 11/15/18 11:43 11/15/18 11:43 11/15/18 11:43 11/15/18 11:43 Results - Labs CBC & Chem 7: 11/15/18 10:58 11/15/18 10:58 Labs: Laboratory Last Values WBC 7.8 K/mm3 (4.5-11.0) 11/15/18 10:58 RBC 4.40 M/mm3 (3.65-5.03) 11/15/18 10:58 Hgb 13.8 gm/dl (10.1-14.3) 11/15/18 10:58 Hct 40.9 % (30.3-42.9) 11/15/18 10:58 MCV 93 fl (79-97) 11/15/18 10:58 MCH 32 pg (28-32) 11/15/18 10:58 MCHC 34 % (30-34) 11/15/18 10:58 RDW 13.8 % (13.2-15.2) 11/15/18 10:58 Plt Count 297 K/mm3 (140-440) 11/15/18 10:58 Lymph % (Auto) 23.4 % (13.4-35.0) 11/14/18 21:35 Avery % (Auto) 6.6 % (0.0-7.3) 11/14/18 21:35 Eos % (Auto) 1.7 % (0.0-4.3) 11/14/18 21:35 Baso % (Auto) 0.6 % (0.0-1.8) 11/14/18 21:35 Lymph # 3.2 K/mm3 (1.2-5.4) 11/14/18 21:35 Avery # 0.9 K/mm3 (0.0-0.8) H 11/14/18 21:35 Eos # 0.2 K/mm3 (0.0-0.4) 11/14/18 21:35 Baso # 0.1 K/mm3 (0.0-0.1) 11/14/18 21:35 Seg Neutrophils % 67.7 % (40.0-70.0) 11/14/18 21:35 Seg Neutrophils # 9.2 K/mm3 (1.8-7.7) H 11/14/18 21:35 PT 12.2 Sec. (12.2-14.9) 11/14/18 21:35 INR 0.86 (0.87-1.13) L 11/14/18 21:35 APTT 32.9 Sec. (24.2-36.6) 11/14/18 21:35 Sodium 138 mmol/L (137-145) D 11/15/18 10:58 Potassium 4.1 mmol/L (3.6-5.0) 11/15/18 10:58 Chloride 97.1 mmol/L (98-107) L 11/15/18 10:58 Carbon Dioxide 27 mmol/L (22-30) 11/15/18 10:58 Anion Gap 18 mmol/L 11/15/18 10:58 BUN 12 mg/dL (7-17) 11/15/18 10:58 Creatinine 0.5 mg/dL (0.7-1.2) L 11/15/18 10:58 Estimated GFR > 60 ml/min 11/15/18 10:58 BUN/Creatinine Ratio 24 % 11/15/18 10:58 Glucose 130 mg/dL (65-100) H 11/15/18 10:58 POC Glucose 71 (70-105) 11/15/18 11:55 Calcium 9.3 mg/dL (8.4-10.2) 11/15/18 10:58 Troponin T < 0.010 ng/mL (0.00-0.029) 11/14/18 21:35 Triglycerides 119 mg/dL (2-149) 11/15/18 06:17 Cholesterol 136 mg/dL (50-199) 11/15/18 06:17 LDL Cholesterol Direct 77 mg/dL (50-130) 11/15/18 06:17 HDL Cholesterol 63 mg/dL (40-59) H 11/15/18 06:17 Cholesterol/HDL Ratio 2.15 % 11/15/18 06:17 Active Medications - Current Medications Current Medications: Generic Name Dose Route Start Last Admin Trade Name Freq PRN Reason Stop Dose Admin Acetaminophen 650 mg 11/14/18 23:12 Tylenol PO Q4H PRN Pain, Mild (1-3) Aspirin 325 mg 11/15/18 10:00 11/15/18 09:13 Aspirin PO 325 mg QDAY [facility] Administration Bisacodyl 10 mg 11/14/18 23:12 Dulcolax [place] QDAY PRN Constipation Dextrose 50 ml 11/15/18 03:55 D50w (25gm) Syringe IV PRN PRN Hypoglycemia Enoxaparin Sodium 40 mg 11/15/18 10:00 11/15/18 09:13 Lovenox SUB-Q 40 mg QDAY [facility] Administration Hydralazine HCl 5 mg 11/15/18 03:54 Apresoline IV Q6H PRN Hypertension Insulin Human Lispro 0 unit 11/15/18 07:30 11/15/18 07:30 Humalog SUB-Q Not Given ACHS [facility] Protocol Levothyroxine Sodium 125 mcg 11/15/18 06:00 11/15/18 05:15 Synthroid PO 125 mcg DAILY@0600 [facility] Administration Magnesium Hydroxide 30 ml 11/14/18 23:12 Milk Of Magnesia PO Q4H PRN Constipation Metformin HCl 500 mg 11/15/18 08:00 11/15/18 09:13 Glucophage PO 500 mg QAMDIAB SHARON Administration Ondansetron HCl 4 mg 11/14/18 23:12 Zofran IV Q4H PRN Nausea And Vomiting Pantoprazole Sodium 40 mg 11/15/18 10:00 11/15/18 09:13 Protonix PO 40 mg DAILY [facility] Administration Pravastatin Sodium 20 mg 11/15/18 22:00 Pravachol PO QHS [facility]ON Pravastatin Sodium 20 mg 11/15/18 22:00 Pravachol PO QHS [facility] Sodium Chloride 10 ml 11/14/18 23:12 Sodium Chloride Flush Syringe 10 Ml IV PRN PRN LINE FLUSH
--- NOTE | 2018-11-15 17:03 | Magnetic Resonance Report ---
PROCEDURE: MR BRAIN WO CON TECHNIQUE: T1 and T2-weighted sagittal, axial, coronal and diffusion-weighted images of the brain we re obtained. HISTORY: stroke COMPARISONS: Head CT dated November 14, 2018 and MRA brain also performed today FINDINGS: T2 signal abnormalities in the subcortical and deep white matter of the cerebral hemispheres bilatera lly and within the vineet are nonspecific in appearance and are most consistent with areas of demyelina tion, age and etiology indeterminate. There is no diffusion abnormality to suggest the presence of acute infarct. There are no areas of intracranial hemorrhage and no evidence of intracranial mass. The ventricles are normal size. Expected flow void is demonstrated within the major intracranial vessels. The extracranial structures and craniocervical junction are unremarkable in appearance. IMPRESSION: 1. Appearance of areas of demyelination, age and etiology indeterminate, in the subcortical and deep white matter of the cerebral hemispheres bilaterally and within the vineet. This may represent chronic postischemic demyelination/small vessel disease. However, other etiologies of demyelination cannot be excluded. No evidence of acute infarct. If there is a clinical suspicion of acute demyelination or an acute intracranial inflammatory process , MRI brain with gadolinium would be helpful for further evaluation. This document is electronically signed by Sita Thayer MD., November 15 2018 05:00:53 PM ET
--- NOTE | 2018-11-15 19:24 | Magnetic Resonance Report ---
PROCEDURE: MR MRA/MRV HEAD WO CON TECHNIQUE: 3-D [id number] MRA of the brain with maximum intensity projection images obtained. HISTORY: stroke COMPARISONS: MRI brain also performed today FINDINGS: There is normal flow-related enhancement within the major intracranial arteries without evidence of o cclusion, hemodynamically significant stenosis or aneurysm. There is supply to the posterior cerebral arteries bilaterally from the internal carotid arteries via the posterior communicating arteries (normal variant). IMPRESSION: 1. No evidence of occlusion, hemodynamically significant stenosis or aneurysm of the major intracrani al arteries. This document is electronically signed by Sita Thayer MD., November 15 2018 07:22:25 PM ET
[2018-11-15] MEDS ORDERED: PRAVACHOL PO SCH ×2 (22:00)
[2018-11-16] MEDS: SYNTHROID PO SCH (06:50)
[2018-11-16] MEDS: HumaLOG SUB-Q SCH (07:30)
[2018-11-16] MEDS: ASPIRIN PO SCH (09:45)
[2018-11-16] MEDS: LOVENOX SUB-Q SCH (09:45)
[2018-11-16] MEDS: PROTONIX PO SCH (09:45)
[2018-11-16] MEDS: GLUCOPHAGE PO SCH (09:45)
--- NOTE | 2018-11-16 13:55 | Magnetic Resonance Report ---
MRI BRAIN WITH CONTRAST: 11/16/18 10:25:00 CLINICAL: Demyelination on noncontrast MRI brain. COMPARISON: 11/15/18 MRI brain without contrast TECHNIQUE: Coronal and axial postcontrast T1 sequences on a 1.5 Karmen magnet. 12.0 cc of Multihance was injected intravenously and consent was obtained prior to the administration of the contrast. FINDINGS: No mass or enhancing lesion. No abnormal enhancement. Normal vascular structures. The orbits, sinuses and soft tissues are normal. Normal calvarium and skull base. IMPRESSION: Normal study with no enhancing lesions identified. The absence of enhancement does not exclude demyelinating disease.
--- NOTE | 2018-11-16 14:24 | Discharge Summary ---
Providers - Providers Date of Admission: 11/14/18 23:12 Date of discharge: 11/16/18 Attending physician: PEG MILLER 11/14/18 Consult to Physician [CONS] Routine Comment: Consulting Provider: CLEMENCIA SOMERS Physician Instructions: Reason For Exam: cva 11/14/18 23:12 Occupational Therapy Evaluate and Treat [CONS] Routine Comment: Reason For Exam: Neuro deficits Physical Therapy Evaluation and Treat [CONS] Routine Comment: Reason For Exam: Neuro deficits Primary care physician: [facility] MD ROHIT Hospitalization Condition: Fair Hospital course: Patient is 62 yo with hypertension, diabetes, hyperlipidemia, COPD, hypothyroidism, came to the emergency room because while she was at [employer] she felt hot, her got her. On the way home she developed left arm numbness and left-sided weakness. She was seen and evaluated in ED. CT Head was unremarkable. She was given Aspirin and admitted to rule out acute stroke. MRI head without contrast was negative for stroke but showed areas of demyelination. However MRI Brain with contrast was negative. She was discharged home with main diagnosis of TIA. Total time spent on discharge, 31 mins Disposition: DC-01 TO HOME OR SELFCARE - Discharge Diagnoses (1) TIA (transient ischemic attack) Status: Acute (2) HTN (hypertension) Status: Chronic (3) Hyperlipidemia Status: Chronic Core Measure Documentation - Palliative Care Palliative Care/ Comfort Measures: Not Applicable - Core Measures Any of the following diagnoses?: none Exam - Constitutional Vitals: Temp Pulse Resp BP Pulse Ox 98.0 F 78 18 153/77 100 11/16/18 10:35 11/16/18 08:42 11/16/18 08:42 11/16/18 08:42 11/16/18 08:42 Plan Activity: no restrictions Diet: low fat, low cholesterol, low salt, diabetic Additional Instructions: 1.Follow up with PCP in 1 week. Follow up with: MELISSA CRAIG MD [Primary Care Provider] - 3-5 Days Prescriptions: Aspirin EC [Aspirin Enteric Coated TAB] 325 mg PO QDAY #30 tablet. Pravastatin [Pravachol] 40 mg PO QHS #30 tablet
[2018-11-16 17:06] VITALS: BP 150/65
== END 2018-11-16 17:45 | disposition home or self-care (01) | DRG 93 ==
LOC: ED 21:17 → 4A 23:12
PROVIDERS: ADMIT Internal Medicine; ATTEND Internal Medicine
DX: R20.0 Anesthesia of skin (principal); I10 Essential (primary) hypertension; E11.9 Type 2 diabetes mellitus without complications; E78.5 Hyperlipidemia, unspecified; J44.9 Chronic obstructive pulmonary disease, unspecified; E03.9 Hypothyroidism, unspecified; E78.00 Pure hypercholesterolemia, unspecified; Z96.659 Presence of unspecified artificial knee joint; Z90.710 Acquired absence of both cervix and uterus; Z82.49 Family history of ischemic heart disease and other diseases of the circulatory system; Z79.84 Long term (current) use of oral hypoglycemic drugs; Z79.899 Other long term (current) drug therapy; Z87.891 Personal history of nicotine dependence
CPT/HCPCS: 36415; 70450; 70544; 70551; 70552; 71045; 80048; 80061; 82962; 84484; 85025; 85027; 85610; 85730; 93005; 93010; 93306; G0378; A9270-GY; A9577; J1650

== ENCOUNTER 2019-06-17 14:40 | Emergency (ER) | payer MEDICARE ==
--- NOTE | 2019-06-17 15:11 | Event Note ---
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 Further treatment and workup at subsequent clinical providers discretion. Patient/guardian urged not to elope from the ED as their condition may be serious if not clinically assessed and managed. Initial orders include: labs, CT head
[2019-06-17 15:51] LABS: Hematocrit 39.1 % (30.3-42.9); Hemoglobin 12.9 gm/dl (10.1-14.3); Mean Corpuscular HGB Conc 33 % (30-34); Mean Corpuscular Volume 96 fl (79-97); Platelet Count 369 K/mm3 (140-440); Red Blood Count 4.08 M/mm3 (3.65-5.03); Red Cell Distribution Width 14.6 % (13.2-15.2)
[2019-06-17 15:56] LABS: BUN/Creatinine Ratio 30; Blood Urea Nitrogen 18 mg/dL (7-17); Calcium 9.6 mg/dL (8.4-10.2); Hemolysis Index 12
[2019-06-17 16:23] LABS: Bilirubin,Urine NEG (Negative); Blood,Urine NEG (Negative); Color,Urine Straw (Yellow); Protein,Urine <15 mg/dL mg/dL (Negative); Urobilinogen,Urine < 2.0 mg/dL (<2.0); WBC,Urine < 1.0 /HPF (0.0-6.0)
[2019-06-17] MEDS ORDERED: ASPIRIN 81 MG TAB CHEW PO ONE (16:44)
[2019-06-17] MEDS ORDERED: amLODIPine 5 MG TAB PO ONE (16:44)
--- NOTE | 2019-06-17 16:44 | Emergency Department Report ---
ED General Adult HPI - General Chief complaint: High BP Stated complaint: ELEVATED B/P Time Seen by Provider: 06/17/19 15:08 Source: patient Mode of arrival: Ambulatory Limitations: No Limitations - History of Present Illness Initial comments: Mrs. South is a 63 yo female with hx of HTN, DM, dyslipidemia, COPD, hypothyroidism who presents with mild transient headache and generalized malaise. Took blood pressure with home wrist cuff. SBP > 200 mg HG. reading as a virus station was 203/103. She told my colleague that she had tingling on the right side of her body. She denies any numbness. She denies any current headache. No trouble with speech. She was evaluated by her primary physician this past Wednesday. Blood pressure was within reasonable range. She has been eating out more so than normal. She had fried chicken sandwich at night for dinner. In October of this year, Mrs. South was treated for TIA. At that time she had left arm numbness and left-sided weakness. She has been described aspirin therapy. Mrs. South does not recall the diagnoses of stroke or mini-stroke. -: Gradual, This morning Location: head, right, upper extremity Consistency: now resolved Improves with: none Worsens with: none Associated Symptoms: denies other symptoms - Related Data Home Medications Medication Instructions Recorded Confirmed Last Taken Atenolol [Tenormin] 50 mg PO DAILY 11/14/18 11/14/18 Unknown Levothyroxine Sodium 125 mcg PO DAILY 11/14/18 11/14/18 Unknown Omeprazole 40 mg PO DAILY 11/14/18 11/14/18 Unknown Quinapril/Hydrochlorothiazide 1 each PO BID 11/14/18 11/14/18 Unknown [Quinapril-Hctz 20-12.5 mg Tab] amLODIPine 5 mg PO DAILY 11/14/18 11/14/18 Unknown metFORMIN [Glucophage] 500 mg PO QDAY 11/14/18 11/14/18 Unknown Previous Rx's Medication Instructions Recorded Last Taken Type Aspirin EC 325 mg PO QDAY #30 tablet. 11/16/18 Unknown Rx Pravastatin [Pravachol] 40 mg PO QHS #30 tablet 11/16/18 Unknown Rx Aspirin 325 mg PO ONCE 30 Days #30 tablet 06/17/19 Unknown Rx amLODIPine 10 mg PO DAILY 30 Days #30 tab 06/17/19 Unknown Rx Allergies Allergy/AdvReac Type Severity Reaction Status Date / Time No Known Allergies Allergy Verified 01/08/16 18:11 ED Review of Systems ROS: Stated complaint: ELEVATED B/P Other details as noted in HPI Comment: All other systems reviewed and negative Constitutional: denies: fever, malaise Respiratory: denies: cough Cardiovascular: denies: chest pain Gastrointestinal: denies: abdominal pain, nausea, vomiting ED Past Medical Hx - Past Medical History Previous Medical History?: Yes Hx Hypertension: Yes Hx Diabetes: Yes Hx Arthritis: Yes (NECK AND BACK) Hx COPD: Yes Additional medical history: high cholesterol, hypothyroid - Surgical History Past Surgical History?: Yes Additional Surgical History: knee replacement, , hysterectomy - Social History Smoking Status: Former Smoker Substance Use Type: Prescribed - Medications Home Medications: Home Medications Medication Instructions Recorded Confirmed Last Taken Type Atenolol [Tenormin] 50 mg PO DAILY 11/14/18 11/14/18 Unknown History Levothyroxine Sodium 125 mcg PO DAILY 11/14/18 11/14/18 Unknown History Omeprazole 40 mg PO DAILY 11/14/18 11/14/18 Unknown History Quinapril/Hydrochlorothiazide 1 each PO BID 11/14/18 11/14/18 Unknown History [Quinapril-Hctz 20-12.5 mg Tab] amLODIPine 5 mg PO DAILY 11/14/18 11/14/18 Unknown History metFORMIN [Glucophage] 500 mg PO QDAY 11/14/18 11/14/18 Unknown History Aspirin EC 325 mg PO QDAY #30 tablet. 11/16/18 Unknown Rx Pravastatin [Pravachol] 40 mg PO QHS #30 tablet 11/16/18 Unknown Rx Aspirin 325 mg PO ONCE 30 Days #30 tablet 06/17/19 Unknown Rx amLODIPine 10 mg PO DAILY 30 Days #30 tab 06/17/19 Unknown Rx ED Physical Exam - General Limitations: No Limitations General appearance: alert, in no apparent distress - Head Head exam: Present: atraumatic, normocephalic - Eye Eye exam: Present: normal appearance - ENT ENT exam: Present: mucous membranes moist - Neck Neck exam: Present: normal inspection, full ROM - Respiratory Respiratory exam: Present: normal lung sounds bilaterally. Absent: respiratory distress, wheezes, rales, rhonchi - Cardiovascular Cardiovascular Exam: Present: regular rate, normal rhythm, normal heart sounds. Absent: systolic murmur, diastolic murmur, rubs, gallop - GI/Abdominal GI/Abdominal exam: Present: soft, normal bowel sounds. Absent: distended, tenderness, guarding - Extremities Exam Extremities exam: Present: normal inspection - Back Exam Back exam: Present: normal inspection - Neurological Exam Neurological exam: Present: alert, oriented X3 - Expanded Neurological Exam Expanded Patient oriented to: Present: person, place, time Speech: Present: fluid speech Cranial nerves: EOM's Intact: Normal Cerebellar function: Finger to Nose: Normal Upper motor neuron: Yevgeniy Neglect: Normal Sensory exam: Upper Extremity Light Touch: Normal Motor strength exam: RUE: 5, LUE: 5, RLE: 5, LLE: 5 Best Eye Response ([place]): (4) open spontaneously Best Motor Response ([place]): (6) obeys commands Best Verbal Response ([place]): (5) oriented Maurice Total: 15 - Psychiatric Psychiatric exam: Present: normal affect, normal mood - Skin Skin exam: Present: warm, dry, intact, normal color. Absent: rash ED Course Vital Signs 06/17/19 15:09 Temperature 97.4 F L Pulse Rate 70 Respiratory 18 Rate Blood Pressure 187/93 O2 Sat by Pulse 100 Oximetry ED Medical Decision Making - Lab Data Result diagrams: 06/17/19 15:24 06/17/19 15:24 - Medical Decision Making Mrs. South presents with transient mild headache, paresthesias and elevated b lood pressure. I do not suspect TIA. I do not suspect intracranial hemorrhage. Patient appears quite well at this time. I have asked her to increase her amlodipine from 5 mg to 10 mg. I provided a prescription for the same. Also recommended low-salt diet. I recommended that she follows up with her primary physician this upcoming week for blood pressure check. She is no longer taking aspirin after her discharge from our hospital on October. I have prescribed aspirin therapy for the next 30 days. Critical care attestation.: If time is entered above; I have spent that time in minutes in the direct care of this critically ill patient, excluding procedure time. ED Disposition Clinical Impression: Hypertensive urgency Disposition: [id number] TO HOME OR SELFCARE Is pt being admited?: No Does the pt Need Aspirin: No Condition: Stable Instructions: Hypertension (ED) Additional Instructions: Please see your primary doctor this week for blood pressure check. Please incre ase amlodipine (Norvasc) from 5 mg to 10 mg. Prescriptions: amLODIPine 10 mg PO DAILY 30 Days #30 tab Aspirin 325 mg PO ONCE 30 Days #30 tablet Referrals: PRIMARY CARE, [Referring] - 3-5 Days
[2019-06-17 16:50] LABS: Large Platelets 1+; Platelet Estimate Consistent w Auto; RBC Morphology Normal; Total Cells Counted 100
[2019-06-17 17:34] VITALS: BP 155/81
== END 2019-06-17 17:35 | disposition home or self-care (01) ==
LOC: ED 14:40
DX: I16.0 Hypertensive urgency (principal); E11.9 Type 2 diabetes mellitus without complications; M19.90 Unspecified osteoarthritis, unspecified site; J44.9 Chronic obstructive pulmonary disease, unspecified; E03.9 Hypothyroidism, unspecified; E78.00 Pure hypercholesterolemia, unspecified; Z98.890 Other specified postprocedural states; Z90.710 Acquired absence of both cervix and uterus; Z87.891 Personal history of nicotine dependence; Z79.899 Other long term (current) drug therapy
CPT/HCPCS: 36415; 80048; 81001; 85007; 85025